=== PATIENT | female | born 2000 | race African-American/Black ===

== ENCOUNTER 2019-08-23 03:29 | Inpatient (IN) ==
[2019-08-23] MEDS ORDERED: TORADOL IV ONE (04:20)
[2019-08-23] MEDS ORDERED: NS 1,000 ML IV ONE (04:20)
[2019-08-23] MEDS ORDERED: ZOFRAN IV ONE (04:20)
[2019-08-23] MEDS ORDERED: MORPHINE IV ONE (05:18)
[2019-08-23 05:30] LABS: BASO# 0.01 X1000 (0.0-0.2); BASO% 0.1 % (0.0-0.8); EOS# 0.09 X1000 (0.0-0.7); EOS% 1.1 % (0.0-10.0); HEMATOCRIT 37.2 % (37.0-47.0); HEMOGLOBIN 11.8 g/dL (12.0-16.0); IMM GRAN# 0.01 X1000 (0.0-0.04); IMM GRAN% 0.1 % (0.0-0.5); LYMPH# 1.19 X1000 (1.2-3.4); LYMPH% 15.1 % (20.5-51.1); MCH 24.8 PG (27-31); MCHC 31.7 g/dL (33-37); MCV 78.2 FL (81-99); MONO# 0.66 X1000 (0.11-0.59); MONO% 8.4 % (1.7-9.3); MPV 10.4 FL (7.4-10.4); NEUT# 5.93 X1000 (1.4-6.5); NEUT% 75.2 % (42.2-75.2); PLT 296 X1000 (130-400); RBC 4.76 XMIL (4.2-5.4); RDW 13.8 % (11.5-14.5); WBC 7.89 X1000 (4.8-10.8)
[2019-08-23 05:46] LABS: ESTIMATED GFR > 60
[2019-08-23 05:47] LABS: AGAP 11; ALKALINE PHOSPHATASE 133 U/L (32-104); BUN 11 mg/dL (8-22); CALCIUM 8.7 mg/dL (8.8-10.2); CHLORIDE 107 mmol/L (98-107); COSMO 285; CREATININE 0.6 mg/dL (0.5-0.9); GLUCOSE 113 mg/dL (70-104); GOT 129 U/L (10-30); GPT 229 U/L (10-36); POTASSIUM 3.1 mmol/L (3.5-5.1); SODIUM 143 mmol/L (136-145); TCO2 25 mmol/L (25-35); TOTAL PROTEIN 7.5 g/dL (6.3-8.3)
[2019-08-23 05:53] LABS: LIPASE > 3000 U/L (13-60)
--- NOTE | 2019-08-23 06:32 | PROVIDER DOCUMENTATION ---
HPI-Abdominal Pain/GI Problem - General Chief Complaint: Epigastric Pain Stated Complaint: CHEST PAIN Time Seen by Provider: 08/23/19 03:44 Source: patient Allergies/Adverse Reactions: Patient Allergies Allergy/AdvReac Type Severity Reaction Status Date / Time No Known Allergies Allergy Verified 07/16/19 18:11 Home Medications: Home Medication List Medication Instructions Recorded Confirmed Last Taken Type NK [No Home Medications] 08/23/19 08/23/19 Unknown History - History of Present Illness-ABD Nature of Presenting Problems: Severe epigastric pain starting Wednesday afternoon with associated vomiting. Pain is severe, worsened by eating or drinking. No fever or other symptoms. No previous such episodes. Review of Systems - Adult - REVIEW OF SYSTEMS - ADULT Constitutional: denies: chills, fever, night sweats, weight gain, weight loss Eyes: reports: no symptoms reported Ears, Nose, Mouth & Throat: reports: no symptoms reported Cardiovascular: reports: no symptoms reported Respiratory: reports: no symptoms reported Gastrointestinal: reports: see HPI Genitourinary: reports: no symptoms reported Musculoskeletal: reports: no symptoms reported Integumentary: reports: no symptoms reported Neurological: reports: no symptoms reported Psychiatric: reports: no symptoms reported Hematologic/Lymphatic: reports: no symptoms reported Allergic/Immunologic: reports: no symptoms reported Past History - Adult - PAST MEDICAL HISTORY-ADULT Review of Records: reports: Nursing Assessment Review, Social history reviewed & non-contributory. Physical Exam-General - CONSTITUTIONAL General Appearance: appears well, alert, no apparent distress - EYES Eyes: PERRL/EOMI, pink conjunctivae. negative: meningismus - HEAD, EARS, NOSE, MOUTH & THROAT HENMT: normocephalic/atraumatic, moist mucous membranes, normal ENT inspection - NECK Neck: non-tender, full range of motion, supple - RESPIRATORY Respiratory: chest non-tender, lungs clear, normal breath sounds - CARDIOVASCULAR Cardiovascular: normal peripheral pulses, regular rate, rhythm, no edema, no JVD - GASTROINTESTINAL (ABDOMEN) Abdominal Exam: normal bowel sounds, guarding, tenderness (epigastrium and RUQ.) . negative: distended, rebound - LYMPHATIC Lymphatic: no adenopathy - MUSCULOSKELETAL Back Exam: normal inspection, no CVA tenderness Extremity: normal range of motion, normal capillary refill - SKIN Integumentary: normal color, normal turgor, warm/dry - NEUROLOGIC Neurologic: grossly normal. negative: facial droop, focal weakness, motor weakness - PSYCHIATRIC Psych/Mental Status: normal mood/affect Progress - PLAN OF CARE/RESULTS Progress/Plan/Lab Results: Vital Signs - 8 hr 08/23/19 03:36 Temperature 98.6 F Pulse Rate 57 L Respiratory Rate 18 Blood Pressure 142/96 O2 Sat by Pulse Oximetry 100 Laboratory Results - last 24 hr 08/23/19 08/23/19 05:10 05:10 WBC 7.89 RBC 4.76 Hgb 11.8 L Hct 37.2 MCV 78.2 L MCH 24.8 L MCHC 31.7 L RDW Std Deviation 13.8 Plt Count 296 MPV 10.4 Immature Gran % (Auto) 0.1 Neut % (Auto) 75.2 Lymph % (Auto) 15.1 L [place] % (Auto) 8.4 Eos % (Auto) 1.1 Baso % (Auto) 0.1 Immature Gran # (Auto) 0.01 Neut # (Auto) 5.93 Lymph # (Auto) 1.19 L [place] # (Auto) 0.66 H Eos # (Auto) 0.09 Baso # (Auto) 0.01 Sodium 143 Potassium 3.1 L Chloride 107 Carbon Dioxide 25 Anion Gap 11 BUN 11 Creatinine 0.6 Estimated GFR/1.73 m2 > 60 BUN/Creatinine Ratio 18 Glucose 113 H Calculated Osmolality 285 Calcium 8.7 L Total Bilirubin 2.60 H AST 129 H ALT 229 H Alkaline Phosphatase 133 H Total Protein 7.5 Albumin 4.0 Globulin 4.0 Albumin/Globulin Ratio 1.0 Lipase > 3000 H Orders Category Date Time Status US GB < RUQ (LIMITED) [US] Stat Exams 08/23/19 06:06 Ordered CBC WITH ELECTRONIC DIFF [HEME] Stat Lab 08/23/19 05:10 Completed COMPREHENSIVE METABOLIC PANEL [CHEM] Stat Lab 08/23/19 05:10 Completed LIPASE [CHEM] Stat Lab 08/23/19 05:10 Completed 0.9% Sodium Chloride Inj [Ns] 1,000 ml Med 08/23/19 04:20 Discontinued IV 999 mls/hr Ketorolac [Toradol] Med 08/23/19 04:20 Discontinued 15 mg IV NOW ONE Morphine Med 08/23/19 05:18 Discontinued 4 mg IV NOW ONE Ondansetron [Zofran] Med 08/23/19 04:20 Discontinued 4 mg IV NOW ONE Considerations include but not limited to: acute pancreatitis, gallstone panc. Lipase >3500 with elevated xaminases and Tbili. US pending at the end of my shift. Admit requested at , however no beds currently available. Case discussed with Dr Fernandez and Dr Saunders. Dr Saunders agrees to admission to [facility] when bed is available and Dr Fernandez will consult. Result Diagrams: 08/23/19 05:10 08/23/19 05:10 - CHANGE OF SHIFT REPORT (ED Provider) 1 Report Given and Care Transferred to:: Dr Calero Time of Transfer: 07:00 Items Pending: Ultrasound Results, Other (transfer to when bed available.) Departure - Departure Date of Disposition Decision: 08/23/19 Time of Disposition Decision: 13:45 DIAGNOSIS: Acute pancreatitis Qualifiers: Pancreatitis type: unspecified pancreatitis type Acute pancreatitis com plication: unspecified Qualified Code(s): K85.90 - Acute pancreatitis without necrosis or infection, unspecified Disposition: ADMITTED INPATIENT 09 Certified Medical Emergency: Emergent Condition: Fair - Critical Care Note This patient required my direct & personal management of CC.: No Attestation - Physician/ EMELIA Attestation The physician spent face to face time with patient:: Yes Advanced Practice Provider documentation review:: Supervising physician onsite and consulted in the evaluation and care of this patient. The physician did have a face to face encounter with the patient.
--- NOTE | 2019-08-23 07:13 | EKG Report ---
Test Performed on : 08/23/2019 03:54:07 AM Test Reason : cp Blood Pressure : / mmHG Vent. Rate : 060 BPM Atrial Rate : 060 BPM P-R Int : 150 ms QRS Dur : 092 ms QT Int : 394 ms P-R-T Axes : 007 066 023 degrees QTc Int : 394 ms Normal sinus rhythm. with sinus arrhythmia. Nonspecific T wave abnormality Abnormal ECG No previous ECGs available Unconfirmed Result
[2019-08-23] MEDS ORDERED: ZOFRAN IV PRN (08:47)
--- NOTE | 2019-08-23 09:10 | HISTORY AND PHYSICAL ---
PRIMARY CARE PHYSICIAN: None. CHIEF COMPLAINT: Epigastric and right upper quadrant abdominal pain with nausea, vomiting that becomes worse after she eats or drinks. Began on Wednesday and progressively worsened. HISTORY OF PRESENTING ILLNESS: This is a 19-year-old -[place] female who presents to [facility] ER with complaints of epigastric and right upper quadrant abdominal pain with nausea and vomiting. States the pain becomes worse after she eats or drinks. Workup in the emergency room showed a lipase of greater than 3000, AST of 129, ALT 229, total bilirubin 2.60, alkaline phosphatase 133. Potassium was mildly low at 3.1. We have done an abdominal ultrasound and are waiting on Radiology read, but preliminary showed multiple gallstones in the gallbladder. So she will be admitted to the [facility] with surgical consultation for further evaluation and treatment. PAST MEDICAL HISTORY: None. PAST SURGICAL HISTORY: None. FAMILY HISTORY: Reviewed and noncontributory. SOCIAL HISTORY: She currently lives with family. Denies any tobacco, alcohol or illicit drug use. ALLERGIES: No known drug allergies. HOME MEDICATIONS: She does not take any medications on a routine basis. LABORATORY DATA: White blood cell count of 7.89, hemoglobin 11.8, hematocrit 37.2, platelets 296,000. Sodium 143, potassium 3.1, chloride 107, CO2 25, BUN of 11, creatinine 0.6, total bilirubin 2.60, AST 129, ALT 229, alkaline phosphatase 133, lipase greater than 3000. EKG showed normal sinus rhythm with sinus arrhythmia at 60. Abdominal ultrasound is pending but preliminary did show multiple gallstones in the gallbladder. REVIEW OF SYSTEMS: She denied any fever, chills, blurred vision, dizziness, chest pain, coughing, shortness of breath. She had epigastric and right upper quadrant abdominal pain and nausea, vomiting. Denied any constipation, diarrhea, burning or hurting with urination. PHYSICAL EXAMINATION: VITAL SIGNS: On arrival she had a temperature of 98.6 degrees, pulse 57, respirations 18, blood pressure 142/96, saturating 100% on room air. GENERAL: This is a 19-year-old -[place] female who is lying in the bed and answers questions appropriately. HEEMNT: Normocephalic, atraumatic. Normal ENT inspection. Oropharynx and nares are clear. Eyes: Pupils are equal, round, reactive to light and accommodation. Extraocular movements are intact. NECK: Normal inspection. Normal range of motion. LUNGS: Clear to auscultation bilaterally with equal lung expansion and chest wall movement. HEART: Regular rate and rhythm. No murmurs, rubs, or gallops. ABDOMEN: Soft. There is tenderness to the epigastric and right upper quadrant area with some guarding noted. Bowel sounds are present x4 quadrants. MUSCULOSKELETAL: She has 5/5 strength x4 extremities. NEUROLOGICAL: The cranial nerves 2-12 appear grossly intact. ASSESSMENT: 1. Epigastric and right upper quadrant abdominal pain, suspect cholelithiasis. 2. Elevated lipase. 3. Elevated liver function tests. 4. Hypokalemia. PLAN: She will be admitted to the [facility]. Held NPO. We will consult Surgery. We are awaiting the physician read ultrasound of the gallbladder, but it certainly appears that she has some gallstones and most likely a stone in the duct causing the elevated LFTs and elevated lipase. We will give her normal saline at 75 mL an hour, will give her potassium 40 mEq IV x1, morphine 2 mg IV q.3 hours p.r.n., Zofran 4 mg IV q.4 hours p.r.n. Recheck a CBC, CMP in the a.m. Further orders after seen by attending. Dictated by NOEMI Hester for Hernán Fitzgerald MD cc: NOEMI Hester MD
[2019-08-23] MEDS: NS 1,000 ML IV SCH ×2 (09:14→21:22)
--- NOTE | 2019-08-23 09:15 | Diag Imaging Result Doc PS360 ---
US GB < RUQ (LIMITED) - 08/23/2019 INDICATION: RUQ pain, elevated lipase and xaminases. TECHNIQUE: COMPARISON: None FINDINGS: There are numerous small shadowing stones in the gallbladder. There is some trace perihepatic free fluid. The pancreas appears normal. The liver and right kidney are normal. Common bile duct measures 6 mm. Aorta, IVC, and main portal vein are patent. IMPRESSION: 1. Numerous small shadowing stones in the gallbladder. 2. Trace perihepatic free fluid. Pancreatitis cannot be excluded. No drainable fluid collections. Electronically signed by Colt Lara 08/23/2019 9:13 AM
[2019-08-23] MEDS: MORPHINE IV PRN ×4 (09:31→23:14)
[2019-08-23] MEDS: POTASSIUM CHLORIDE 20 MEQ/SWI 20 MEQ/100 ML IVPB IV SCH ×2 (09:32→13:00)
[2019-08-23] MEDS ORDERED: TORADOL IV PRN (17:36)
[2019-08-23] MEDS ORDERED: PRILOSEC PO ONE (17:37)
[2019-08-23] MEDS ORDERED: ROCEPHIN 1 GM in NS 50 ML IV SCH (17:45)
--- NOTE | 2019-08-23 18:17 | PROGRESS NOTE ---
DATE: 08/23/2019 SUBJECTIVE: I evaluated the patient at bedside. She was brought to [facility] for suspected acute cholecystitis. Mrs. Shaver currently is not in acute distress. She still states that her abdomen is hurting and she is vomiting. Her significant other is at bedside. VITALS: Temperature 98.8 degrees, pulse 84, respiratory 16, blood pressure 105/54, saturating 100% on room air. PHYSICAL EXAMINATION: General: Not in acute distress. Mouth: Oral cavity is moist. Lungs: Air entry bilaterally equal. No wheeze, rhonchi, crackles. Cardiovascular: S1, S2 normal. No murmur, rub, or gallop. Abdomen: Soft, nontender. Active bowel sounds. Extremity: No lower extremity edema. Neurologic: She is alert and oriented x3. LABS: Suggestive of no leukocytosis. Hemoglobin is 11.8. She does have hypokalemia with potassium of 3.1, BUN 11, creatinine 0.6. She does have transaminitis and elevated lipase. ASSESSMENT AND PLAN: 1. Acute cholecystitis. 2. Hypokalemia. PLAN: Continue intravenous fluid resuscitation. I will address the patient's pain with intravenous ketorolac and intravenous morphine. I will start her on intravenous ceftriaxone and metronidazole and follow up liver function test. I will replete her potassium for hypokalemia as well. Plan of care discussed with the patient. All of her questions have been answered. cc: Kael Qureshi MD
[2019-08-23] MEDS: KLOR-CON PO SCH ×2 (18:31→21:21)
--- NOTE | 2019-08-23 20:01 | GENERAL SURGERY CONSULTATION ---
DATE: 08/23/2019 REASON FOR CONSULTATION: Gallstone pancreatitis. HISTORY OF PRESENT ILLNESS: This is a 19-year-old female who presented to the emergency room with a 2-day history of acute severe epigastric pain with associated nausea and vomiting that was constant for 2 days and worsened after eating. Currently, her pain is significantly subsided with pain medicine. No prior episodes similar to this. No other systemic complaints such as fever, chest pain, shortness of breath, weight loss, etc. PAST MEDICAL HISTORY: None. PAST SURGICAL HISTORY: Umbilical hernia repair, ACL repair. HOME MEDICATIONS: None. ALLERGIES: No known drug allergies. SOCIAL HISTORY: She denies tobacco, alcohol or illicit drug use. FAMILY HISTORY: Reviewed and noncontributory. REVIEW OF SYSTEMS: Ten systems reviewed and negative except as noted above. PHYSICAL EXAMINATION: Vital Signs: Temperature 98 degrees, pulse 54, respirations 22, blood pressure 156/96, O2 saturation 98%. General: Well-developed, well-nourished female in no distress who looks her stated age. HEENT: Normocephalic, atraumatic. Extraocular muscles intact. Pupils equal, round, reactive to light. Sclerae anicteric. Moist mucous membranes. Neck: Supple. No thyromegaly. CV: Regular rate and rhythm. Respiratory: Bilateral equal breath sounds. No work of breathing. Gastrointestinal: Soft, nondistended. No organomegaly or mass. Mildly tender in the epigastrium. No rebound or guarding. Extremities: No clubbing, cyanosis, or edema. Skin: Warm and dry. No rash. Musculoskeletal: Moves all extremities equally and well. LABORATORY: White blood cell count normal, hemoglobin, hematocrit normal. Electrolytes reviewed and notable for potassium 3.1, total bilirubin 2.6, AST 129, ALT 229, alkaline phosphatase 133, total bilirubin 2.6, lipase greater than 3000. IMAGING: Abdominal ultrasound shows numerous shadowing gallstones in the gallbladder, the bile duct is 6 mm. There is trace perihepatic free fluid. ASSESSMENT/PLAN: A 19-year-old female with acute pancreatitis, likely biliary in origin. She has gallstones. She is significantly feeling better. We will start her on a clear liquid diet and recheck her lab work and physical exam tomorrow. If she is improved, we will advance her to a low- fat diet and then discharge her when appropriate and have her follow up with us next week for outpatient cholecystectomy planning. cc: Last Fernandez MD
[2019-08-23 20:09] LABS: UR AMPHETAMINES QUAL NONE DETECTED (NONE DETECT); UR BARBITUATES QUAL NONE DETECTED (NONE DETECT); UR BENZODIAZEPIN QUAL NONE DETECTED (NONE DETECT); UR CANNABINOIDS QUAL NONE DETECTED (NONE DETECT); UR COCAINE QUAL NONE DETECTED (NONE DETECT); UR METHADONE QUAL NONE DETECTED (NONE DETECT); UR OPIATES QUAL PRESUMPTIVE POSITIVE (NONE DETECT); UR OXYCODONE QUAL NONE DETECTED (NONE DETECT); UR PCP QUAL NONE DETECTED (NONE DETECT)
[2019-08-23] MEDS: FLAGYL 500 MG/NS 500 MG/100 ML IVPB IV SCH (21:21)
[2019-08-24] MEDS: FLAGYL 500 MG/NS 500 MG/100 ML IVPB IV SCH ×3 (03:35→15:32)
[2019-08-24] MEDS: MORPHINE IV PRN ×3 (03:52→11:47)
[2019-08-24] MEDS ORDERED: PRILOSEC PO SCH (07:00)
[2019-08-24 07:44] LABS: BASO# 0.01 X1000 (0.0-0.2); BASO% 0.1 % (0.0-0.8); EOS# 0.05 X1000 (0.0-0.7); EOS% 0.5 % (0.0-10.0); HEMATOCRIT 35.9 % (37.0-47.0); HEMOGLOBIN 11.3 g/dL (12.0-16.0); IMM GRAN# 0.02 X1000 (0.0-0.04); IMM GRAN% 0.2 % (0.0-0.5); LYMPH# 1.77 X1000 (1.2-3.4); LYMPH% 17.3 % (20.5-51.1); MCH 25.1 PG (27-31); MCHC 31.5 g/dL (33-37); MCV 79.8 FL (81-99); MONO# 0.75 X1000 (0.11-0.59); MONO% 7.3 % (1.7-9.3); MPV 10.5 FL (7.4-10.4); NEUT# 7.62 X1000 (1.4-6.5); NEUT% 74.6 % (42.2-75.2); PLT 273 X1000 (130-400); WBC 10.22 X1000 (4.8-10.8)
[2019-08-24 07:51] LABS: AGAP 11; ALB/GLOB RATIO 1.2; ALBUMIN 3.7 g/dL (3.5-5.0); ALKALINE PHOSPHATASE 124 U/L (32-104); BUN 8 mg/dL (8-22); CHLORIDE 105 mmol/L (98-107); COSMO 271; CREATININE 0.6 mg/dL (0.5-0.9); ESTIMATED GFR > 60; GLUCOSE 85 mg/dL (70-104); GOT 39 U/L (10-30); GPT 143 U/L (10-36); SODIUM 137 mmol/L (136-145); TCO2 21 mmol/L (25-35); TOTAL BILIRUBIN 0.85 mg/dL (0.20-1.00); TOTAL PROTEIN 6.8 g/dL (6.3-8.3)
--- NOTE | 2019-08-24 09:21 | GENERAL SURGERY PROGRESS NOTE ---
DATE: 08/24/2019 SUBJECTIVE: The patient reports her upper abdominal pain comes and goes. It does hurt some this morning but she says it is not very bad. No nausea or vomiting overnight. She is tolerating her clear liquid diet. She is hungry. OBJECTIVE: She is afebrile. Vital signs are stable. General: She is awake, alert, and oriented x3. No acute distress. She is nontoxic appearing. CV: Regular rate and rhythm. Respiratory: Bilateral breath sounds. No work of breathing. Gastrointestinal: Soft, nondistended. Minimally tender. No mass. Laboratory: CBC and metabolic profile were reviewed and notable for decreasing liver enzymes. Her total bilirubin is now normal. The AST, ALT, and alkaline phosphatase are nearing normal. Lipase is pending. ASSESSMENT/PLAN: A 19-year-old female with acute pancreatitis, likely gallstone in origin. She is improving. We will advance her to a low-fat diet. In my opinion, she can be discharged in the next 24 hours to follow up with me as an outpatient for elective cholecystectomy planning. cc: Last Fernandez MD
[2019-08-24] MEDS ORDERED: ULTRAM PO PRN (14:27)
--- NOTE | 2019-08-24 15:47 | DISCHARGE SUMMARY ---
ADMISSION DATE: 08/23/2019 DISCHARGE DATE: 08/24/2019 DISCHARGE DISPOSITION: Home. DISCHARGE CONDITION: Hemodynamically stable. The patient has been tolerating low-fat diet without any difficulty. She is provided detailed discharge instructions about following up with general surgeon. DISCHARGE DIAGNOSES: 1. Acute calculous cholecystitis. 2. Hypokalemia. DISCHARGE MEDICATIONS: 1. Cefuroxime 250 mg every 12 hours, 10 tablets. 2. Metronidazole 500 mg t.i.d., 15 tablets. 3. Omeprazole 20 mg daily, 10 tablets. 4. Tramadol 25 mg every 6 hours. 10 tablets have been prescribed. VITALS: At the time of discharge, temperature 100 degrees, pulse 93, respiratory 18, blood pressure 112/65 saturating 99% on room air. PHYSICAL EXAMINATION: Not in acute distress. Oral cavity is moist. Lungs: Air entry bilaterally equal. No wheeze, rhonchi, crackles. Cardiovascular: S1, S2 normal. No murmur or gallop. Abdomen: Soft, nontender. No lower extremity edema. She is alert and oriented x3. She has active bowel sounds. SIGNIFICANT LABS: At hospital admission and discharge, WBC 81026, hemoglobin 11.3, platelet 273,000. Potassium improved from 3.1 to 4, BUN 8, creatinine 0.6. Her total bilirubin is normalized from 2.6 to 0.8. AST is 39, ALT 143. Her alkaline phosphatase 124. Her lipase improved from more than 3000 to 849. Her urine toxicology was positive for opiates. test was negative. No microbiological data. IMAGING DURING HOSPITAL ADMISSION: Abdomen ultrasound on 08/23/2019 had numerous small shadowing stones in the gallbladder. There is perihepatic free fluid. Pancreatitis could not be excluded. OTHER DIAGNOSIS: Gallstone pancreatitis. HOSPITAL COURSE SUMMARY: Ms. Shaver is a 19-year-old -Greek lady, without any past medical history, who initially presented to [facility] on 08/23/2019 with chief complaints of epigastric right upper quadrant abdominal pain with nausea, vomiting, and significant postprandial abdominal pain of about 24 to 48 hours duration. She was not able to keep anything down and she presented to the emergency room. In the emergency room, she was found to have temperature of 98.6 degrees, pulse of 57, blood pressure of 142/96, and oxygen saturation of 100% on room air. On lab evaluation, she was found to have transaminitis, hyperbilirubinemia, and elevated lipase level. Ultrasound of the right upper quadrant performed had suggested numerous gallstones with pancreatic inflammation. Considering her abnormal gallbladder study, surgeon team was consulted and the patient was transferred to [facility]. The patient was evaluated by the surgeon doctor. She did not have any history of alcohol use or recreational substance use. It was thought that her symptoms were related to acute cholecystitis due to gallstones. She was started on IV fluids, IV antibiotics and the next day, she had significant improvement in her symptoms and she was able to tolerate low-fat diet. It was decided to discharge her on oral antibiotic and outpatient follow up with general surgeon within 7 days for elective cholecystectomy. The patient was agreeable to this plan. Plan of care was extensively discussed with the patient and her partner at bedside. All of their questions were satisfactorily answered. 25 minutes were spent in preparing her discharge. cc: Kael Qureshi MD
[2019-08-24 16:29] VITALS: BP 127/65
== END 2019-08-24 18:01 | disposition home or self-care (01) | DRG 439 ==
LOC: P.ED 03:29 → SUATTDRO 13:59 → 4N 13:59
PROVIDERS: ATTEND Internal Medicine